=== PATIENT | female | born 1980 | race African-American/Black ===

== ENCOUNTER 2017-04-24 08:15 | Emergency (ER) | payer MEDICAID, MEDICARE ==
[~2017-04-24] VITALS: Ht 170.2 cm; Wt 114.5 kg
[2017-04-24 08:40] VITALS: BP 148/100
[2017-04-24 08:56] LABS: BASOPHILS % 0.5 % (0.0-2.0); HEMATOCRIT. 32.3 % (36.0-48.0); HEMOGLOBIN. 10.3 g/dL (12.0-16.0); LYMPHOCYTES % 23.9 % (20.0-50.0); MEAN CORPUSCULAR HEMOGLOBIN 23.9 pg (28.0-32.0); MEAN CORPUSCULAR VOLUME 75.1 fL (81.0-99.0); MEAN PLATELET VOLUME 8.2 fl (7.4-10.4); NEUTROPHILS % 68.6 % (40.0-76.0); PLATELET 423 x1000/uL (130-400); RED CELL DISTRIBUTION WIDTH 16.1 % (11.6-14.6)
[2017-04-24 09:01] LABS: CLARITY URINE CLOUDY (CLEAR); COLOR URINE DARK YELLOW (YELLOW); GLUCOSE URINE NEGATIVE (NEGATIVE); KETONES URINE TRACE (NEGATIVE); LEUKOCYTE ESTERASE URINE TRACE (NEGATIVE); NITRITE URINE NEGATIVE (NEGATIVE); OCCULT BLOOD URINE 3+ (NEGATIVE); PH URINE 5.5 (4.5-8.0); PROTEIN URINE TRACE (NEGATIVE); SPECIFIC GRAVITY URINE 1.021 (1.005-1.030)
[2017-04-24 09:08] LABS: B-HCG QUANTITATIVE 8 mIU/mL (<3); CARBON DIOXIDE 26 mEq/L (21-32); CHLORIDE 109 mEq/L (98-107)
== END 2017-04-24 09:43 | disposition home or self-care (01) ==
LOC: ER 08:15
DX: O03.9 Complete or unspecified spontaneous abortion without complication (principal); Z3A.01 Less than 8 weeks gestation of pregnancy
CPT/HCPCS: 36415; 80048; 81001; 81025; 84702; 85025; 86850; 86900; 99284

== ENCOUNTER 2017-07-05 08:51 | Emergency (ER) | payer MEDICAID ==
[~2017-07-05] VITALS: Ht 170.2 cm; Wt 110.0 kg
[2017-07-05 09:09] VITALS: BP 128/57
[2017-07-05] MEDS ORDERED: KETOROLAC 60MG/2ML VIAL IM ONE (10:00)
== END 2017-07-05 13:47 | disposition left against medical advice (07) ==
LOC: ER 09:18
DX: R07.81 Pleurodynia (principal); F17.210 Nicotine dependence, cigarettes, uncomplicated; Y04.0XXA Assault by unarmed brawl or fight, initial encounter
CPT/HCPCS: 81025; 96372; 99283; J1885

== ENCOUNTER 2018-05-23 12:52 | Emergency (ER) | payer MEDICAID, MEDICARE ==
[~2018-05-23] VITALS: Ht 170.2 cm; Wt 88.0 kg
[2018-05-23 12:55] VITALS: BP 140/84
== END 2018-05-23 14:15 | disposition left against medical advice (07) ==
LOC: ER 13:20
DX: Z53.21 Procedure and treatment not carried out due to patient leaving prior to being seen by health care provider (principal)

== ENCOUNTER 2021-02-23 11:37 | Emergency (ER) | payer MEDICARE ==
[~2021-02-23] VITALS: Ht 170.2 cm; Wt 114.0 kg
[2021-02-23] MEDS ORDERED: TC1U15 TP (12:14)
[2021-02-23] MEDS ORDERED: DIPH25CA83 MT (12:14)
[2021-02-23 12:50] VITALS: BP 162/79
== END 2021-02-23 12:51 | disposition home or self-care (01) ==
LOC: ER 11:37
DX: R21 Rash and other nonspecific skin eruption (principal); Z79.899 Other long term (current) drug therapy
CPT/HCPCS: 99283

== ENCOUNTER 2021-06-13 07:22 | Emergency (ER) | payer MEDICARE, MEDICAID ==
[~2021-06-13] VITALS: Ht 170.2 cm; Wt 106.0 kg
[~2021-06-13 07:22] MED LIST: DIPH25CA83 MT; TC1U15 TP
[2021-06-13] MEDS ORDERED: ACETAMINOPHEN 325MG TABLET PO ONE (08:30)
[2021-06-13] MEDS ORDERED: OXYC-100 PO (08:55)
[2021-06-13] MEDS ORDERED: KETOROLAC 60MG/2ML VIAL IM ONE (09:15)
[2021-06-13 09:23] VITALS: BP 118/78
== END 2021-06-13 09:25 | disposition home or self-care (01) ==
LOC: ER 07:22
DX: M25.562 Pain in left knee (principal)
CPT/HCPCS: 29505; 73562; 81025; 96372; 99283; J1885